=== PATIENT | female | born 1960 | race Caucasian/White ===

== ENCOUNTER 2020-10-31 11:36 | Day surgery (SDC) | payer MEDICARE, BC ==
[~2020-10-31] VITALS: Ht 160 cm; Wt 60.9 kg
--- NOTE | ~2020-10-31 | HEMODYNAMI ---
PATIENT:GEENA HENRIQUEZ MEDICAL RECORD: [id number] : 62 LOCATION:DT[facility]dy[facility] ADMISSION DATE: 10/31/20 Generatedon:113:45 Patient name: GEENA HENRIQUEZ Patient #: [id number] SSN: [id number] : 1960 Date of study: 10/31/2020 Page: Of Hemodynamic Procedure Report Patient Data Patient Demographics Procedure consent was obtained First Name: GEENA Gender: Female Last Name: MARTINEZ : 1960 Middle Initial: CARLY Age: 60 year(s) Patient #: [id number] Race: SSN: [id number] Additional ID: [id number] Contact details Address: [address] [place] [address] State: [place] City: [place] Zip code: [address] Past Medical History Allergies: No known allergies Admission Admission Data Admission Date: 10/31/2020 Admission Time: 11:36 Arrival Date: 10/31/2020 Arrival Time: 0:00 Admit Source: Other Insurance Payor: Medicare [facility] #: [id number] Lab Results Lab Result Date: 10/31/2020 Lab Result Time: 0:00 Biochemistry Name Units Result Min Max BUN mg/dl 11 --(-*--)-- 7 18 Creatinine mg/dl 0.8 --(-*--)-- 0.6 1.3 eGFR ml/min 78 *-(----)-- 90 120 NONAFRICAN CBC Name Units Result Min Max Hematocrit % 39.8 -*(----)-- 42 54 Hemoglobin g/dl 13.9 --(*---)-- 13.5 17.5 Procedure Procedure Types Cath Procedure Diagnostic Procedure ABEBA Procedure Description Procedure Date Procedure Date: 10/31/2020 Procedure Start Time: 0:00 Procedure Staff Name Function Jabari Combs MD Performing Physician Kendra Lees RT Monitor Juan Carlos Martin RN Nurse Hope Guan Dethistler Operator Jamaal Escamilla MD Additional personnel Procedure Data Cath Procedure Estimated blood loss: 0 ml Procedure Complications No complications Procedure Medications Medication Administration Route Dosage 0.9% NaCl I.V. 100 ml/hr Hurricaine Arco P.O. Sprays Refer to Anesthesia Notes for Sedation Medications Hemodynamics Rest HGB: 13.9 (g/dl) Heart Rate: 66 (bpm) Snapshots Pre Cath Intra NCS Post Cath Vital Signs Time Heart Resp SPO2 NIBP (mmHg) Rhythm Pain Sedation Rate (ipm) (%) Status Level (bpm) 13:21:33 71 15 99 154/87(107) NSR 0 (11) 10(A) , No pain 13:26:52 73 36 97 182/110(160) NSR 0 (11) 8(A) , No pain 13:28:23 71 15 93 197/108(180) NSR 0 (11) 8(A) , No pain 13:32:51 65 11 94 151/85(127) NSR 0 (11) 8(A) , No pain Medications Time Medication Route Dose Verified Delivered Reason Notes Effectiv eness by by 13:24:43 0.9% NaCl I.V. 100 Juan Carlos Juan Carlos ml/hr Veronica Martin RN RN 13:25:00 Hurricaine P.O. Sprays Juan Carlos Rangel for local Arco Veronica Martin anesthetic RN RN 13:25:16 Refer to Juan Carlos Rangel for Anesthesia Veronica Martin sedation Notes for RN RN Sedation Medications Procedure Log Time Note 12:54:47 Diagnostic Cath Status : Elective 12:56:30 Arrival Date: 10/31/2020 12:00:00 AM 12:56:30 Admit Source: Other 12:56:35 Insurance Payor : Medicare 12:58:05 ACC Patient presents with Stable Angina CCS Anginal Class 2--Slight limitation of ordinary activity. 12:58:09 Procedure Status ABEBA. 12:58:10 Time tracking: Regular hours (M-F 7:00 - 5:00) 12:58:16 Plan of Care:Hemodynamics will remain stable., Cardiac rhythm will remain stable., Comfort level will be maintained., Respiratory function will remain adequate., Patient/ family verbilizes understanding of procedure., Procedure tolerated without complication., Recovers from procedure without complications.. 12:58:27 H&P Date Dictated: 10/27/2020 Within 30 days and on chart.. 12:58:39 Patient allergic to No known allergies 12:58:44 Alarms reviewed by R. N. 12:58:44 Sharps counted by scrub and verified by R.N. 12:59:22 Stress Test: yes; abnormal APICAL 13:15:00 Kendra Lees RT(R) sent for patient. Start room use. 13:19:45 Patient received from Pre/Post Procedure Room to CCL 3 Alert and oriented. Tansferred to table in Supine position. 13:19:54 Signed procedure consent form obtained from patient. 13:19:55 Warm blankets applied, and shanice hugger turned on for patient comfort. 13:19:56 Correct patient and procedure confirmed by team. 13:20:00 ECG and BP/O2 sat monitors applied to patient. 13:20:23 Vital chart was started 13:20:33 Baseline sample Acquired. 13:20:39 Rhythm: sinus rhythm 13:20:41 Full Disclosure recording started 13:20:42 Pre-procedure instructions explained to patient. 13:20:43 Pre-op teaching completed and patient verbalized understanding. 13:20:46 Family in patients room. 13:20:47 Patient NPO since Midnight. 13:20:50 Is the patient allergic to Iodine/contrast media? No. 13:22:02 Was the patient premedicated? Yes 13:22:10 Is patient on blood thinner?Yes 13:22:27 ACC The patient was administered the following blood thiners within the last 24 hours: ACCAspirin 13:22:56 Patient diabetic? No. 13:23:03 If diabetic: On Metformin? N/A 13:23:04 ----Pre-sedation anethsthesia assessment.---- 13:23:07 Previous problem with sedation/anesthesia? No ? 13:23:08 Snore? Yes 13:23:10 Sleep apnea? No 13:23:11 Deviated septum? No 13:23:12 Opens mouth fully? Yes 13:23:14 Sticks out tongue? Yes 13:23:16 Airway obstruction? No ? 13:23:30 Dentures? Yes IN PERMANANT 13:23:36 Patient pain scale 0/10 ?. 13:23:42 IV patent on arrival in left antecubital with 0.9% NaCl at O. 13:23:49 --------ALL STOP TIME OUT------ 13:23:50 Final Timeout: patient, procedure, and site verified with staff and physician. All members of the team are in agreement. 13:23:56 Physical assessment completed. ASA score P 2 - A patient with mild systemic disease as per Jabari Combs MD. 13:24:01 Sedation plan: TIVA Medication:Propofol 13:24:43 0.9% NaCl 100 ml/hr I.V. was administered by Juan Carlos Martin RN; ; Verbal order read back and verified. 13:25:00 Hurricaine Arco Sprays P.O. was administered by Juan Carlos Martin RN; for local anesthetic; Verbal order read back and verified. 13:25:16 Refer to Anesthesia Notes for Sedation Medications was administered by Juan Carlos Martin RN; for sedation; Verbal order read back and verified. 13:25:35 Jamaal Escamilla MD present and monitoring patient for TIVA. 13:25:39 ABEBA 13:25:46 Hope Mio Glass Laminating Operator present for ABEBA. 13:25:48 ABEBA started. 13:26:42 Lab Result : BUN 11 mg/dl 13::42 Lab Result : Hemoglobin 13.9 g/dl 13::42 Lab Result : eGFR NONAFRICAN 78 ml/min 13::42 Lab Result : Creatinine 0.8 mg/dl 13::42 Lab Result : Hematocrit 39.8 % 13:33:35 ABEBA completed. 13:33:45 Procedure ended.(Physican Out) 13:34:00 Post-procedure physical assessment completed. ASA score P 2 - A patient with mild systemic disease as per Jabari Combs MD. 13:34:04 Post procedure rhythm: unchanged. 13:34:07 Estimated blood loss: 0 ml 13:34:11 Post procedure instruction explained to patient.Patient verbalizes understanding. 13:34:12 Patient needs reinforcement of post procedure teaching. 13:35:04 Procedure and supply charges have been captured, reviewed, submitted and are correct. 13:36:06 Procedure Complication : No complications 13:36:09 Vital chart was stopped 13:36:27 Operative report dictated upon procedure completion. 13:36:28 See physician's report for complete and final results. 13:36:45 Report given to Pre/Post Procedure Room. 13:36:56 Patient transfered to Pre/Post Procedure Room with Stretcher. 13:37:36 ABEBA Findings: Aortic Stenosis (see operative note) 13:37:47 End room use (Document Last) 13:38:32 End room use (Document Last) 13:39:20 End room use (Document Last) Signature Audit [place] Stage Time Signature Unsigned Intra-Procedure 10/31/2020 Kendra Lees 1:38:32 PM RT(R) Intra-Procedure 10/31/2020 Juan Carlos 1:39:20 PM Veronica COMER Intra-Procedure 10/31/2020 Jabari Lynch 1:45:56 PM Felipe VÁSQUEZ [facility] [address] [place] [address]
[2020-10-31 12:24] VITALS: BP 160/84; Ht 160 cm; Wt 60.9 kg
[2020-10-31 12:46] LABS: HEMATOCRIT 39.8 % (36.0-48.0); HEMOGLOBIN 13.9 g/dL (12-16); LYMPHOCYTES 27.7 % (15-50); MCH 32.1 pg (26.0-34.0); MCHC 34.9 g/dL (31.0-37.0); MCV 92.2 fL (80.0-100.0); MEAN PLATELET VOLUME 8.7 fL (7.4-10.4); MONOCYTES 8.3 % (2-11); PLATELET COUNT 161 10x3/uL (130-400); RBC 4.32 10x6/uL (4.00-5.40); RDW 12.9 % (11.5-14.5); WBC 6.7 10x3/uL (4.8-10.8)
[2020-10-31] MEDS ORDERED: WELLBUTRIN XL150 M1 PO (12:48)
[2020-10-31] MEDS ORDERED: XANAX1 MG PO (12:49)
[2020-10-31] MEDS ORDERED: ZOLOFT100 MG PO (12:49)
[2020-10-31] MEDS ORDERED: HYDROCODON-ACE1 EA10 PO (12:50)
[2020-10-31] MEDS ORDERED: ADDERALL 30 MG30 MG PO (12:50)
[2020-10-31] MEDS ORDERED: NAMENDA10 MG PO (12:52)
[2020-10-31] MEDS ORDERED: AMITIZA8 MCG PO (12:52)
[2020-10-31] MEDS ORDERED: MINOCYCLINE HC100 M1 PO (12:53)
[2020-10-31] MEDS ORDERED: TRAZODONE HCL100 MG PO (12:53)
[2020-10-31] MEDS ORDERED: BAYER CHEWABLE81 MG PO (12:56)
[2020-10-31 12:57] LABS: CALC OSMOLALITY 278 mosm/kg (275-300); CALCIUM 8.9 mg/dL (8.5-10.1); CARBON DIOXIDE 31.9 mmol/L (21.0-32.0); CHLORIDE - SERUM 103 mmol/L (98-107); CREATININE - SERUM 0.8 mg/dL (0.6-1.3); GLUCOSE 89 mg/dL (74-106); SODIUM 141 mmol/L (136-145); UREA NITROGEN 11 mg/dL (7-18); eGFR NON AFRICAN AMERICAN 78 mL/min (90-120)
[2020-10-31] MEDS ORDERED: VITAMIN B-122500 MCG PO (12:59)
[2020-10-31] MEDS ORDERED: VITAMIN D325 MC1 PO (12:59)
[2020-10-31] MEDS ORDERED: ZINC SULFATE220 MG PO (13:00)
--- NOTE | 2020-10-31 13:50 | NUR ---
PT ARRIVED TO CATH RECOVERY ROOM 2. MONITORING EQUIPMENT APPLIED, ASSESSMENT COMPLETE. PT AOX4, FOLLOWS COMMANDS. VSS, NO COMPLAINTS OF NAUSEA. INSTRUCTED TO REMAIN NPO FOR 1 HOUR, VERBALIZES UNDERSTANDING.
--- NOTE | 2020-10-31 14:05 | NUR ---
PT AOX4, FOLLOWS COMMANDS. NO COMPLAINTS OF NAUSEA OR PAIN. VSS. CALL LIGHT WITHIN PT REACH.
--- NOTE | 2020-10-31 14:20 | NUR ---
PT AOX4, NO C/O NAUSEA OR PAIN. VSS, ASSESSMENT COMPLETE. FRIEND AT BEDSIDE. CALL LIGHT WITHIN PT REACH.
--- NOTE | 2020-10-31 14:32 | OP ---
PATIENT NAME: GEENA HENRIQUEZ MEDICAL RECORD: [id number] :62 LOCATION:D.CAT ADMISSION DATE: SURGEON: BITA BURNETT MD DATE OF OPERATION: 10/31/2020 TRANSESOPHAGEAL NOTE DESCRIPTION OF PROCEDURE: After general sedation via TIVA via anesthesia, transesophageal Omniplane probe was placed in the distal esophagus to proximal stomach without difficulty. FINDINGS: As follows; LVH is present. LV internal dimension is normal. Wall motion is normal. EF is greater than or equal to 55%. Aortic valve is calcified with restriction of leaflet motion. Planimetered valve area is 0.9 to 0.7. There is probably moderate AI as well. This is an eccentrically directed jet, which is questionably affecting mitral valve opening. Left atrium appears normal. Left atrial appendage is well visualized with good contractility. No evidence of thrombus. Mitral valve appears normal. Trivial MR. Right-sided chamber is grossly normal. Trivial TR. IMPRESSION: Uknzvxvk-py-owfwxg aortic stenosis, nnkpyldw-ab-txwjsl aortic insufficiency as described above. TRANSINT:[id number] Voice Confirmation ID: [id number] DOCUMENT ID: [id number] BITA BURNETT MD at 1432 CC: [id number] DICTATION DATE: 10/31/20 1337 [employer] SUPERVISOR: 10/31/20 1427 [facility] [address] [place] [address]
--- NOTE | 2020-10-31 14:35 | NUR ---
PIV D/C'D WITH TIP INTACT. DISCHARGE INSTRUCTIONS PROVIDED, PT AND PT FRIEND VERBALIZE UNDERSTANDING. PT ALLOWED TO GET DRESSED INDEPENDENTLY.
--- NOTE | 2020-10-31 14:59 | NUR ---
DISCHARGED VIA WHEELCHAIR TO PRIVATE VEHICLE. ALL BELONGINGS AND PAPERWORK WITH PT.
== END 2020-10-31 15:00 | disposition home or self-care (01) ==
LOC: D.CATH 11:36
PROVIDERS: ATTEND Internal Medicine Interventional Cardiology
DX: I35.0 Nonrheumatic aortic (valve) stenosis (principal); I20.9 Angina pectoris, unspecified; R06.09 Other forms of dyspnea